=== PATIENT | male | born 1985 | race Two or more races ===

== ENCOUNTER 2024-05-05 13:47 | Outpatient (AMB) | payer OTHER, SELFPAY ==
--- NOTE | 2024-05-05 14:15 | MHC.OFFVIS ---
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 A recent Holter had shown supraventricular ectopy with a burden of 18% and hence he is referred. Patient himself denies any clear-cut symptoms like palpitations, angina, shortness of breath or in fact any other cardiac symptoms. He also denies any prior cardiac history including coronary disease or myocardial infarction or cardiomyopathy. Otherwise, quite healthy with no significant limitations. He takes medications for HIV prevention. [facility] Surgical History (Updated 05/05/24 @ 14:22 by Lana Chacon CMA) History of hernia surgery Family History (Updated 05/05/24 @ 14:23 by Lana Chacon CMA) Father HTN (hypertension) Social History (Updated 05/05/24 @ 14:23 by Lana Chacon CMA) Alcohol intake: never Patient Tobacco Use Status: Never used Tobacco Review of Systems Const Denies chills, Denies daytime sleepiness, Denies fatigue, Denies fever(s), Denies poor appetite, Denies snoring, Denies stops breathing during sleep, Denies weakness, Denies weight gain and Denies weight loss Eyes Denies loss of vision ENT Denies dizziness and Denies hearing loss Card Denies chest pain, Denies irregular heart rhythm, Denies claudication, Denies leg edema, Denies lightheadedness, Denies palpitations, Denies dyspnea on exertion and Denies orthopnea Resp Denies cough, Denies excessive phlegm production, Denies dyspnea on exertion, Denies snoring and Denies wheezing GI Denies abdominal pain, Denies hematochezia, Denies change in bowel habits, Denies nausea and Denies vomiting Denies dysuria and Denies urinary frequency Musc Denies arthralgias, Denies muscle weakness, Denies numbness and Denies other Skin/Breast Denies nail changes and Denies rash Neuro Denies Abnormal speech present, Denies dizziness, Denies loss of vision, Denies memory loss, Denies numbness and Denies weakness Psych Denies depression and Denies memory loss Endo Denies fatigue and Denies palpitations Nadir/Lymph Denies easy bruising Aller/Immun Denies wheezing Physical Exam Vital Signs: Last Vital Signs Pulse 89 05/05/24 14:19 BP 142/86 H 05/05/24 14:19 BMI result Body Mass Index 27.4 Const General: comfortable and no acute distress Orientation/consciousness: patient oriented x3 HEENT Other: Unremarkable Head: Yes normal to inspection Neck Neck: Yes normal visual inspection Chest Chest palpation & inspection: normal inspection of the chest Resp Auscultation: clear to auscultation bilaterally Cardio Palpation: normal PMI Heart sounds: S1 normal heart sound present, S2 normal heart sound present, no gallops, no murmurs and no rubs GI Palpation (GI): Soft to palpation Back/Spine/Pelvis Other: unremarkable Skin General skin exam: no rashes or lesions noted Neuro General: patient oriented x3 Speech: No Abnormal speech present Extrem General: Yes normal to inspection Psych Mental Status: mental status grossly normal Office Procedures EKG Details: EKG with underlying sinus rhythm at 89/Min; supraventricular ectopy; no significant ST-T changes; [place]. [address]-[id number], Complete Assessment & Plan Assessment & Plan (1) Atrial arrhythmia: Code(s): I49.8 - Other specified cardiac arrhythmias Category: Medical Plan In the recent Holter monitor, there is description of frequent supraventricular ectopy with a burden of 18%. Primarily isolated PACs. No documented atrial fibrillation or flutter. No significant pauses. Rare PVCs. No symptoms reported. We will check an echocardiogram for cardiac function assessment as well as atrial size. As he does not have any clear symptoms, we will continue to monitor this. Blood pressure is borderline high but could be from anxiety. We can recheck in future visits. No specific meds for now. Orders: Orders CA echo transthoracic complete Today I49.8 - Other specified cardiac arrhythmias Patient Instructions: - Undergo the echocardiogram as scheduled. - Monitor blood pressure regularly, especially during stressful events. - Seek immediate care if experiencing severe chest pain, significant palpitations, or difficulty breathing. - Maintain awareness of any changes in symptom patterns or frequency. Coding Level of Care Code New Pt Level 3 (46751) Diagnoses Atrial arrhythmia I49.8 CPT Codes EKG - CPT: 29632-[id number], Complete ([id number])
[2024-05-05 14:19] VITALS: BP 142/86; PULSE 89; BMI 27.4
== END 2024-05-05 14:57 | disposition home or self-care (01) ==
LOC: HO.HCS 13:47
PROVIDERS: PCP Family Medicine; Visit Provider Internal Medicine
DX: I49.8 Other specified cardiac arrhythmias (principal)
CPT/HCPCS: 93010; 99203

== ENCOUNTER → 2024-05-05 13:47 | Outpatient (BNVA) | payer OTHER, SELFPAY | PROVIDERS: PCP Family Medicine; Visit Provider Internal Medicine | DX: I49.8 Other specified cardiac arrhythmias (principal) | CPT/HCPCS: 93005 ==

== ENCOUNTER → 2024-05-24 10:48 | Outpatient (REF) | payer OTHER, SELFPAY ==
--- NOTE | 2024-05-24 10:55 | CA_ITS ---
Transthoracic Echocardiogram Amended Patient (Last, First, Middle): Lazaro Rosenberg, Gender: Male Date of : 1985 Age: 39 Procedure Date: 05/24/2024 Procedure Type: Transthoracic Echocardiogram Location: OP Height: 170.18 cm Weight: 76.66 kg BSA: 1.88 m2 Heart Rate: bpm BP: 130 / 82 mmHg Strength And Conditioning Coach: TO Referring MD: Mauro Rodriguez MD Symptoms: I49.8 - Other specified cardiac arrhythmias Study Quality: Adequate w contrast ECG Rhythm: Sinus Conclusions: - The left ventricular systolic function is moderately decreased. Visually estimated LVEF about 40%. - No obvious valvular pathology seen on this study. Findings Procedure Information Contrast agent, definity, is being given per protocol without apparent complications. Left Ventricle Normal left ventricular cavity size. There is normal left ventricular wall thickness. The left ventricular systolic function is moderately decreased. There is moderate global hypokinesis. Diastolic function is normal for age. Visually estimated LVEF about 40%. Right Ventricle Normal right ventricular cavity size. There is low normal right ventricular systolic function. Atria Both atria are normal in size. Aortic Valve There is a normal trileaflet aortic valve. There is no aortic valve stenosis. There is no aortic valve regurgitation. Mitral Valve The mitral valve appears normal. There is no mitral valve regurgitation. There is no mitral valve stenosis. Pulmonic Valve The pulmonic valve is likely normal. Tricuspid Valve There is trace tricuspid valve regurgitation. There is no evidence of pulmonary hypertension. Great Vessels The asc aorta is normal in size. Small plaque is seen in the sino tubular ridge. Venous The inferior vena cava is normal in size and collapses greater than 50% with inspiration. Pericardium/Pleural There is no evidence of pericardial effusion. Prior Study Comparison No prior study available for comparison. Recommendations, Care & Conclusions No obvious valvular pathology seen on this study. Measurements 2D Linear Measurements IVSd: 0.95 0.6-0.9/0.6-1.0 cm LVIDd: 5.43 3.9-5.3/4.2-5.9 cm LVIDd Index: 2.89 2.4-3.2/2.2-3.1 cm/m2 LVIDs: 4.53 2.0-3.6 cm LVPWd: 0.70 0.7-1.1 cm LV Mass: 203.05 67-162/88-224 g LV Mass Index: 108.01 43-95/49-115 g/m2 LVOT Diam: 2.30 3.0+(-)1.3 cm 2D Volumes LA Vol: 21.30 2D Systolic Function EF 4C: 46.50 >55% EF 2C: 41.90 >55% EF BiP: 42.20 >55% Mitral Valve MV Pk E: 0.36 MV PK A: 0.52 MV Decel Time: 182.00 E/A: 0.70 E'Lateral: 13.20 E'Medial: 6.20 E/E' Med: 5.80 E/E' Lat: 2.70 PHT: 53.00 MVA PHT: 4.15 Decel [place]: 1.97 Aortic Valve AoV Pk Abhi: 1.16 AoV Mn Abhi: 0.79 AoV VTI: 0.19 AoV Pk Grad: 5.00 Aov Mn Grad: 3.00 LILIA Cont.VTI: 3.49 LVOT LVOT Pk Abhi: 0.98 LVOT Mn Abhi: 0.69 LVOT VTI: 0.16 LVOT Pk Grad: 4.00 LVOT Mn Grad: 2.00 LVOT Diam: 2.30 LVOT Area: 4.15 Diastolic Function MV Pk E: 0.36 MV Pk A: 0.52 E/A: 0.70 E'Medial: 6.20 E/E' Med: 5.80 E' Laterial: 13.20 E/E' Lat: 2.70 Right Ventricle TAPSE (mm): 20.30 TVS' Abhi: 10.20 Tricuspid Valve RA Press: 3.00 Great Vessels Aorta Sinus of Valsalva: 3.46 2.0-3.5 cm Ao Asc: 2.80 2.1-3.4 cm Updated in Other Vendor System with Status of Final Mauro Rodriguez MD electronically signed on 05/26/2024 11:58:16 AM with status of Final
== END ==
LOC: HO.CARD 10:48
PROVIDERS: PCP Family Medicine; Visit Provider Internal Medicine
DX: I49.8 Other specified cardiac arrhythmias (principal)
CPT/HCPCS: 93306; Q9957

== ENCOUNTER → 2024-05-24 10:55 | Outpatient (BNV) | payer OTHER, SELFPAY | PROVIDERS: PCP Family Medicine; Visit Provider Internal Medicine | DX: I42.8 Other cardiomyopathies (principal) | CPT/HCPCS: 93306 ==

== ENCOUNTER 2024-12-27 07:56 | Outpatient (AMB) | payer OTHER, SELFPAY ==
--- OUTSIDE RECORDS SUMMARY | 2024-12-21 11:00 | XMS_ITS | Encounter Summary ---
Author Organization [facility] Address [address] [place] [address] [place] [phone] Phone Care Team Providers Care Manager Assessment Name Role Phone Pcp, Unknown Primary Care Provider Unavailabl e Encounter Details Date Type Department Care Team (Late st Contact Info) Description 12/21/2024 12:00 PM EDT Pre-Admission Testing Pre Procedure Evaluation [address] [place] [address] Hal Sagastume MD [address] [place] [phone] Social History Tobacco Use Types Packs/Day Years Used Date Smoking Tobacco: Former Cigarettes Smokeless Tobacco: Never Tobacco Cessation:Counseling Given: Not Answered Alcohol Use Standard Drinks/Week Comments Never 0 (1 standard drink = 0.6 oz pur e alcohol) Education Answer Date Recorded Are you interested in more education? Not on aryan e 12/03/2023 Are you concerned about learning? Not on file 12/03/2023 No 12/03/2023 No 12/03/2023 Digital Access Answer Date Recorded No 12/03/2023 No 12/03/2023 Reliable internet access at home? Not on file 12/03/2023 Device with a working camera? Not on file Intimate Partner Violence Answer Date R ecorded Denied Basic Needs Not on file 12/22/2024 In the past 12 months have y ou been in a relationship with a person who hurts, threatens, or tries to control you? No 12/22/2024 Worried food would run out Not on file 12/22 In the past 12 months have y ou been in a relationship with a person who hurts, threatens, or tries to control you? No 12/22/2024 Sex and Gender Information Value Date Recorded Sex Assigned at Not on file Legal Sex Male 9:34 AM EDT Gender Identity Not on file Sexual Orientation Not on file documented as of this encounter Last Filed Vital Signs Vital Sign Reading Time Taken Comments Blood Pressure - - Pulse - - Temperature - - Respiratory Rate - - Oxygen Saturation - - Inhaled Oxygen Concentration - - Weight 72.6 kg (160 lb) 12/22/2024 10:11 AM EDT Height 170.2 cm (5' 7 ) 12/22/2024 10:11 AM EDT Body Mass Index 25.06 12/22/2024 10:11 AM EDT documented in this encounter Progress Notes * Kenia Almanza RN - 12/21/2024 12:00 PM EDT Reviewed prep instructions. All questions answered. Ride home arranged. Patient verbalized understanding documented in this encounter Plan of Treatment Upcoming Encounters Date Type Department Care Team (Latest Contact Info) Description 12/29/2024 Procedure Pass [facility] Endoscopy Admitting Dept Virtual Department [address] [place] [phone] 12/29/2024 1:30 PM EST Hospital Encounter [facility] Admitting Dept Virtual Department [address] [place] [address] Hal Sagastume MD [address] [place] [phone] [email or web address] 12/29/2024 1:30 PM EST - 12/29/2024 2:00 PM EST Surgery [facility] Endoscopy Admitting Dept Virtual Department [address] [place] [address] Hal Sagastume MD [address] [place] [phone] [email or web address] ESOPHAGOGASTRODUODENOSCOPY Scheduled Procedures Name Priority Associated Diagnoses Date/Ti in ESOPHAGOGASTRODUODENOSCOPY Forde's esophagus without dysplasia 12/29/2024 1:30 PM EST documented as of this encounter Visit Diagnoses Not on filedocumented in this encounter Care Teams Manager Assessment Relationship Specialty Start Date End Date Pcp, Unknown PCP - General 11/20/23 documented as of this encounter Additional Source Comments The information contained in this document represents components of the legal health record. It is not the complete legal health record.[facility]
--- OUTSIDE RECORDS SUMMARY | 2024-12-27 08:00 | XMS_ITS | Clinical Summary ---
Author Organization [facility] Address [address] [place] [phone] Phone Care Team Providers Care Front Office Representative Name Role Phone Pcp, Unknown Primary Care Provider Unavailabl e Allergies No known active allergies Medications terbinafine HCL (LAMISIL) 250 mg tablet Take 1 tablet by mouth every morning. 12/07/2024 Active DESCOVY 200-25 mg tablet Take 1 tablet by mouth every morning. 12/08/2024 Active doxycycline monohydrate (ADOXA) 100 MG tablet as needed. 12/07/2024 Active Encounters Date Type Department Care Team Description 12/21/2024 12:00 PM EDT Pre-Admission Testing Pre Procedure Evaluation [address] [place] [address] Hal Sagastume MD from Last 3 Months Social History Tobacco Use Types Packs/Day Years [...] on file Sexual Orientation Not on file Last Filed Vital Signs Vital Sign Reading Time Taken Comments Blood Pressure - - Pulse - - Temperature - - Respiratory Rate - - Oxygen Saturation - - Inhaled Oxygen Concentration - - Weight 72.6 kg (160 lb) 12/22/2024 10:11 AM EDT Height 170.2 cm (5' 7 ) 12/22/2024 10:11 AM EDT Body Mass Index 25.06 12/22/2024 10:11 AM EDT Plan of Treatment Upcoming Encounters Date Type Department Care Team (Latest Contact Info) Description 12/29/2024 Procedure Pass [facility] Endoscopy Admitting Dept Virtual Department [address] [place] [phone] 12/29/2024 1:30 PM EST Hospital Encounter [facility] Endoscopy Admitting Dept Virtual Department [address] [place] [address] Hal Sagastume MD [address] [place] [phone] [email or web address] 12/29/2024 1:30 PM EST - 12/29/2024 2:00 PM EST Surgery [facility] Endoscopy Admitting Dept Virtual Department [address] [place] [address] Hal Sagastume MD [address] [place] [phone] [email or web address] ESOPHAGOGASTRODUODENOSCOPY Scheduled Procedures Name Priority Associated Diagnoses Date/Ti ok ESOPHAGOGASTRODUODENOSCOPY Forde's esophagus without dysplasia 12/29/2024 1:30 PM EST Medical Devices Not on file Insurance [employer] Member Subscriber Plan / Payer (Ef fective 2023-Present) Name:Venancio LandisingLazaro alexandra Relation to Subscriber:Self Name:Venancio LandisingLazaro alexandra Payer ID:[id number] (NAIC) Type:PPO Address: [place] [id number] [employer] [facility] [employer] Care Teams Front Office Representative Relationship Specialty Start Date End Date Pcp, Unknown PCP - General 11/20/23 Additional Source Comments The information contained in this document represents components of the legal health record. It is not the complete legal health record.[facility]
--- OUTSIDE RECORDS SUMMARY | 2024-12-27 08:00 | XMS_ITS | Encounter Summary ---
Author Organization [facility] Address [address] [place] [phone] Phone Care Team Providers Care Burrer Hand Name Role Phone Pcp, Unknown Primary Care Provider Unavailabl e Encounter Details Date Type Department Care Team (Late st Contact Info) Description 11/20/2023 Procedure Pass Non-Invasive Cardiology [address] [place] [phone] Social History Tobacco Use Types Packs/Day Years Used Date Smoking Tobacco: Never Assessed Sex and Gender Information Value Date Recorded Sex Assigned at Not on file Legal Sex Male 9:34 AM EDT Gender Identity Not on file Sexual Orientation Not on file documented as of this encounter Plan of Treatment Upcoming Encounters Date Type Department Care Team (Latest Contact Info) Description 12/29/2024 Procedure Pass [facility] Admitting Dept Virtual Department [address] [place] [phone] 12/29/2024 1:30 PM EST Hospital Encounter [facility] Admitting [facility] Virtual Department [address] [place] [address] Hal Sagastume MD [address] [address] [email or web address] 12/29/2024 1:30 PM EST - 12/29/2024 2:00 PM EST Surgery [facility] Admitting Dept Virtual Department [address] [place] [address] Hal Sagastume MD [address] [phone] ([email or web address]) [email or web address] ESOPHAGOGASTRODUODENOSCOPY Scheduled Procedures Name Priority Associated Diagnoses Date/Ti id ESOPHAGOGASTRODUODENOSCOPY Forde's esophagus without dysplasia 12/29/2024 1:30 PM EST documented as of this encounter Visit Diagnoses Not on filedocumented in this encounter Care Teams Burrer Hand Relationship Specialty Start Date End Date Pcp, Unknown PCP - General 11/20/23 documented as of this encounter Additional Source Comments The information contained in this document represents components of the legal health record. It is not the complete legal health record.[facility]
[2024-12-27 08:23] VITALS: BP 138/82; PULSE 97; BMI 27.0
--- NOTE | 2024-12-27 08:23 | MHC.OFFVIS ---
Vital Signs 12/27/24 08:23 Height 5 ft 7 in Weight 172 lb 6.424 oz BMI 27.0 BP 138/82 Blood Pressure Location Lt brachial Position Sitting Pulse 97 Pulse Source Pulse Oximeter Intake Visit Reasons: 6 month f/up Quality Assurance Technician Required: No Allergies No Known Allergies Allergy (Verified 12/27/24 08:26) Medication List - Last Reconciled 12/27/24 by Steffanie Royal, [employer] emtricitabine-tenofovir alafen 200-25 mg (Descovy) 1 tab PO DAILY vitamin B complex 1 tab PO DAILY HPI HPI 6 month f/up: Details: Lazaro is a 39-year-old male with no significant past medical history who recently had a Holter monitor showing high burden of supraventricular ectopy. His echocardiogram showed EF 40% followed by A CTA of the coronary arteries was recently done showing no significant coronary artery disease. Now presents for follow-up. Today he reports no concerning symptoms. He denies chest discomfort, shortness of breath, heart palpitations, lightheadedness, edema. He reports good activity tolerance. 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 He drinks 4 caffeinated coffees per day. [facility] Surgical History History of hernia surgery Family History Father HTN (hypertension) Social History Alcohol intake: never Patient Tobacco Use Status: Never used Tobacco Review of Systems Const All systems reviewed & are unremarkable except as noted in HPI and below ENT Denies dizziness Card Denies chest pain, Denies chest pain at rest, Denies chest pain with activity, Denies rapid heart rate, Denies pedal edema, Denies edema, Denies leg edema, Denies lightheadedness, Denies palpitations, Denies dyspnea, Denies dyspnea on exertion and Denies orthopnea Resp Denies cough, Denies dyspnea and Denies dyspnea on exertion GI Denies hematochezia and Denies change in stool character Musc Denies abnormal gait, Denies limited range of motion, Denies muscle cramps, Denies muscle weakness, Denies numbness, Denies radiating pain into limb, Denies stiffness and Denies tingling Neuro Denies abnormal gait, Denies dizziness, Denies numbness and Denies tingling Endo Denies palpitations Physical Exam Vital Signs: Last Vital Signs Pulse 97 12/27/24 08:23 BP 138/82 12/27/24 08:23 BMI result Body Mass Index 27.0 Const General: cooperative, healthy appearing, comfortable and no acute distress Orientation/consciousness: patient oriented x3 Neck Neck: Yes normal visual inspection Resp Effort & Inspection: normal respiratory effort Auscultation: clear to auscultation bilaterally, no rales, no rhonchi and no wheezes Cardio Rate: regular rate Rhythm: regular rhythm Heart sounds: S1 normal heart sound present, S2 normal heart sound present, no gallops, no murmurs and no rubs Neuro General: patient oriented x3 Extrem General: Yes normal to inspection and No no pedal edema Psych Appearance: grossly normal Mental Status: mental status grossly normal Speech and movement: Normal speech and movement present Assessment & Plan Assessment & Plan (1) Atrial arrhythmia: Code(s): I49.8 - Other specified cardiac arrhythmias Category: Medical Plan: Holter monitor from 12/10/2023 shows sinus rhythm, average heart rate 89 beats per minute, frequent PACs, burden 18%, no AFib/flutter. Echocardiogram 05/24/2024 showed EF 40%, no regional wall motion abnormalities and no valve abnormalities. He had a CTA of the coronaries 10/31/2024 showing no hemodynamically significant coronary artery disease. Instructed on reducing caffeine intake to 1 per day. Physical activity as tolerated. Will start on metoprolol XL 50 mg daily to help with PAC reduction and neurohormonal modulation. Will plan for Holter monitor and limited echo prior to next visit. Cardiology follow-up 3 months, sooner if needed (2) Cardiomyopathy: Code(s): I42.9 - Cardiomyopathy, unspecified Category: Medical Plan: Finding of reduced EF, 40%. May be related to frequent PACs. No other obvious causes at this time. Plan I discussed with the patient the presence of premature atrial contractions and decreased cardiac contractility. We reviewed the normal coronary artery blood flow and the potential impact of caffeine on heart rhythm. I recommended starting metoprolol to stabilize heart rhythm and improve contractility, with a follow-up plan including heart monitoring and echocardiogram. Orders: Orders ECG 3 day holter monitor 1 Month I49.8 - Other specified cardiac arrhythmias CA Echo Limited 2 Months I42.9 - Cardiomyopathy, unspecified Medications: New metoprolol succinate ER 50 mg PO DAILY 30 tabs 5RF Patient Instructions: - Take metoprolol once daily as prescribed. - Reduce caffeine intake to one cup per day. - Expect follow-up calls for scheduling heart monitor and echocardiogram. - Report any new symptoms such as chest pain or dizziness immediately. Patient was informed and verbally consented to the use of an ambient scribe for clinic note documentation during this visit. Visit time spent on chart review, interview, assessment, orders, documentation. Coding Level of Care Code Est Pt Level 4 (21008) Complex EM visit Add On G2211 Diagnoses Atrial arrhythmia I49.8 Cardiomyopathy I42.9 Time Spent (min) 28
== END 2024-12-27 08:50 | disposition home or self-care (01) ==
LOC: HO.HCS 07:56
PROVIDERS: PCP Family Medicine; Visit Provider Nurse Practitioner Family
DX: I49.8 Other specified cardiac arrhythmias (principal); I42.9 Cardiomyopathy, unspecified
CPT/HCPCS: 99214; G2211